=== PATIENT | female | born 2005 | race Caucasian/White ===

== ENCOUNTER 2024-05-29 12:53 | Emergency (ER) | payer BC, SELFPAY ==
[2024-05-29 12:55] VITALS: BP 140/85
--- NOTE | 2024-05-29 12:58 | ED.GENMED ---
ED Provider Triage
<Guilherme Liriano PA-C - Last Filed: 05/29/24 12:59>
-
Patient seen by provider in Triage?: Seen in Triage
19-year-old female presents with right sided facial and neck swelling worsening over the past week. She has been on amoxicillin over the past week. Was just at the dentist office today. She has had a tooth extraction and they gave her numbing
medicine. The pain is persistent despite the numbing medicine. She denies chest pain or shortness of breath. No measurable fever
Question possible dental abscess versus parotid gland infection concern for deep space infection given the neck discomfort
Labs ordered through triage as well as a CT of the neck with IV contrast
Patient received a medical screening assessment by healthcare provider in triage. She warrants further evaluation
History of Present Illness
<Guilherme Liriano PA-C - Last Filed: 05/29/24 12:59>
General
Chief Complaint: Jaw Pain
Time Seen by Provider: 05/29/24 13:37
<Starr Ellsworth PA-C - Last Filed: 05/29/24 21:40>
General
Source: patient
Exam Limitations: none
Nursing documentation reviewed up to this point in time: agreed with
History of Present Illness
History of Present Illness:
19-year-old female presents emergency department today with right lower jaw pain for the past month, acutely worsening the past 3 days. Patient reports that she has had problems with her teeth in general for a while now but reports that she started
having right lower dental pain. She went to go see her dentist and had to have a root canal performed. This was a few weeks ago. Patient was subsequently given amoxicillin but states that she did not finish the full course because she was
admitted to inpatient psychiatric treatment and they did not give her the rest of the antibiotic course there. Patient states that she then presented to the dentist again and states that they had to pull a tooth out. She had that tooth pulled this
morning.She saw Dr. Sotelo at [facility]. She was told that she needs to report to emergency department because her infection could be beyond the pulp space and could spread deeper into her jaw. Patient denies fevers or chills, nausea or vomiting,
trouble swallowing. Patient states that she has not been eating due to the severe pain and reports that she has been very depressed because of it
Review of Systems
<Starr Ellsworth PA-C - Last Filed: 05/29/24 21:40>
Review of Systems
All Other Systems: ROS reviewed and negative except as documented in HPI and ROS
Phy Exam
<Starr Ellsworth PA-C - Last Filed: 05/29/24 21:40>
Physical Exam
Physical Exam:
General: Patient is well appearing and in no acute distress; non-toxic
Skin: Warm and dry, no rashes or lesions
Head: Normocephalic, atraumatic, TMJ joints intact bilaterally
Neck: No cervical lymphadenopathy, no palpable crepitus
Eyes: Sclera non-icteric. EOMs intact.
Cardiac: Regular rate and rhythm, no murmurs
Mouth: Gingival inflammation noted, surgically absent tooth 31, no purulent drainage
Pulm: Normal respiratory effort, no wheezes, rales, or rhonchi
Neuro: CN II-XII intact, no focal neurologic deficits.
Psychiatric: Appropriate mood and affect.
Course
<Guilherme Liriano PA-C - Last Filed: 05/29/24 12:59>
Orders/Labs/Results
Orders:
Orders
05/29/24 12:56
CT Neck With Iv Contrast Urgent
Comment:
Reason For Exam: right facial/neck swelling
05/29/24 12:57
Test Result ONCE
05/29/24 13:09
Complete Blood Count/With Diff Urgent
Comprehensive Metabolic Panel Urgent
HCG, Serum Qualitative Screen Urgent
05/29/24 14:13
Ketorolac [Toradol] 30 mg IM NOW STA
05/29/24 14:24
Ketorolac [Toradol] 30 mg IV NOW STA
05/29/24 15:23
Case Management Consult ONCE
Case Management Consult: Discharge Planning
Comment: financial troubles, affording visit
Crisis Consult Urgent
Reason for Consult: depression
Comment: hopelessness, depression, wants inpatient treatment but cannot dental infec
Abnormal Lab Results
05/29/24
13:09
MCH 31.6 H pg
(27.0-31.0)
Abs Immat Gran (auto) 0.1 H 10^3/uL
(0-0.05)
Absolute Neuts (auto) 6.8 H 10^3/uL
(1.4-6.5)
Lymphocytes % 18.5 L %
(20.5-51.1)
BUN 18 H mg/dl
(7-17)
Glucose 101 H mg/dl
(70-99)
AST 52 H U/L
(14-36)
ALT 42 H U/L
(0-35)
05/29/24 13:09
05/29/24 13:09
Vital Signs
Initial and Last Documented VS:
Initial Vital Signs
Temp Pulse Resp BP Pulse Ox
98.1 F 80 16 140/85 100
05/29/24 12:55 05/29/24 12:55 05/29/24 12:55 05/29/24 12:55 05/29/24 12:55
Last Documented Vital Signs
Temp Pulse Resp BP Pulse Ox
98.1 F 82 16 112/79 97
05/29/24 12:55 05/29/24 16:49 05/29/24 16:49 05/29/24 16:49 05/29/24 16:49
<Starr Ellsworth PA-C - Last Filed: 05/29/24 21:40>
Orders/Labs/Results
Orders:
Orders
05/29/24 12:56
CT Neck With Iv Contrast Urgent
Comment:
Reason For Exam: right facial/neck swelling
05/29/24 12:57
Test Result ONCE
05/29/24 13:09
Complete Blood Count/With Diff Urgent
Comprehensive Metabolic Panel Urgent
HCG, Serum Qualitative Screen Urgent
05/29/24 14:13
Ketorolac [Toradol] 30 mg IM NOW STA
05/29/24 14:24
Ketorolac [Toradol] 30 mg IV NOW STA
05/29/24 15:23
Case Management Consult ONCE
Case Management Consult: Discharge Planning
Comment: financial troubles, affording visit
Crisis Consult Urgent
Reason for Consult: depression
Comment: hopelessness, depression, wants inpatient treatment but cannot dental infec
Abnormal Lab Results
05/29/24
13:09
MCH 31.6 H pg
(27.0-31.0)
Abs Immat Gran (auto) 0.1 H 10^3/uL
(0-0.05)
Absolute Neuts (auto) 6.8 H 10^3/uL
(1.4-6.5)
Lymphocytes % 18.5 L %
(20.5-51.1)
BUN 18 H mg/dl
(7-17)
Glucose 101 H mg/dl
(70-99)
AST 52 H U/L
(14-36)
ALT 42 H U/L
(0-35)
05/29/24 13:09
05/29/24 13:09
Vital Signs
Initial and Last Documented VS:
Initial Vital Signs
Temp Pulse Resp BP Pulse Ox
98.1 F 80 16 140/85 100
05/29/24 12:55 05/29/24 12:55 05/29/24 12:55 05/29/24 12:55 05/29/24 12:55
Last Documented Vital Signs
Temp Pulse Resp BP Pulse Ox
98.1 F 82 16 112/79 97
05/29/24 12:55 05/29/24 16:49 05/29/24 16:49 05/29/24 16:49 05/29/24 16:49
<Starr Ellsworth PA-C - Last Filed: 05/29/24 21:40>
MDM/Problems Addressed
Differential Diagnosis Includes:
See below
MDM/Problems Addressed:
NUMBER AND COMPLEXITY OF PROBLEMS ADDRESSED AT THE ENCOUNTER
� Chronic conditions affecting care: Recurrent dental infections
� Acute Exacerbation and/or Progression of Chronic Illness:
� Differential Diagnosis includes: Differentials include diffuse infection of the neck, dental abscess, submandibular infection, osteonecrosis of the jaw
AMOUNT AND/OR COMPLEXITY OF DATA TO BE REVIEWED AND ANALYZED
� I performed an independent evaluation of and my interpretation is:
CT: CT scan report reviewed, CT scan reveals minor inflammation of the right submandibular soft tissues with no evidence of submandibular gland involvement, no evidence of dental abscess
Laboratory Studies: CBC unremarkable
Other:
� Review of other/old records: No previous ER physician documentation to review, discharge summaries
RISK OF COMPLICATIONS AND/OR MORBIDITY OR MORTALITY OF PATIENT MANAGEMENT
� Social determinants of health affecting care: Mental health, lack of family support
� Discussion with other providers: Reviewed case with my ER attending Dr. Marx
� Escalation of care including admission/observation vs risk of discharge considered:
19-year-old female presents emergency department today with persistent right lower jaw pain for the past few weeks has gotten acutely worse the past few days. Patient has no associated fevers or chills. Of note, patient had root canal done of
tooth 31-week ago and did have extraction of this tooth this morning. She has an appointment with another dentist tomorrow morning. Her dentist was concerned about spread of the infection deeper into the jaw or into the neck. On exam, patient has
a surgically absent T3 1 but no purulent drainage, no other signs of infection with dentition, pain patient's CAT scan shows mild inflammation of the right mandibular tissues but no evidence of abscess. Patient had 2 doses of amoxicillin the past 2
days started by her dentist, advised patient to continue taking this medication to resolve any infection. Patient was in a lot of pain upon arrival to emergency department, her pain eventually resolved with Toradol, patient did express suicidal
ideations test here in the emergency department states that she is a support at home and feels that this pain has been unbearable. Crisis was consulted, patient did agree to partial program for treatment of her depression, patient is able to
contract for her safety at this time and feels that upon discharge, she will be able to keep herself safe. Patient states that she is can follow-up with her dentist tomorrow morning, patient stable for discharge. CAT scan report provided for
patient
<Starr Ellsworth PA-C - Last Filed: 05/29/24 21:40>
*Critical Care Note
Total Time (30-74mins, 75-104mins- exclusive of procedures): Not Applicable
ED Attending Note
<Guilherme Liriano PA-C - Last Filed: 05/29/24 12:59>
-
Portions of this chart may have been created with voice recognition software.� Occasional wrong word or��sound alike� substitutions may have occurred due to the inherent limitations of voice recognition software.
Discharge Plan
Departure
Patient Disposition: Home (Routine Discharge)
Date of Disposition: 05/29/24
Time of Disposition: 16:38
Patient with high blood pressure during this ER visit?: Yes
Condition: Good
Discharge Problem:
Dental infection
Instructions: Dental Pain ED, BLOOD PRESSURE
Referrals:
UNKNOWN - PT DOES,NOT KNOW [Family Provider] -
Activity Restrictions/Additional Instructions:
PLEASE CONTINUE YOUR ANTIBIOTIC AT HOME.
A copy of your CT scan report is included in this packet.
PLEASE FOLLOW UP WITH YOUR DENTIST TOMORROW MORNING SCHEDULED.
PLEASE RETURN TO THE EMERGENCY DEPARTMENT SHOULD YOU DEVELOP DIFFICULTY SWALLOWING, TROUBLE BREATHING, PERSISTENT BLEEDING, LIGHTHEADEDNESS, DIZZINESS, INTRACTABLE PAIN, FEVERS OR CHILLS, NAUSEA OR VOMITING, OR ANY OTHER SIGNS OR SYMPTOMS CONCERNING
TO YOU.
Interventions
Interventions:
*Risk Screen - Suicide Last Done: 05/29/24 12:55
*General Assessment Last Done: 05/29/24 12:55
*Neglect/Abuse Screening Last Done: 05/29/24 12:55
ED- Fall Risk Assessment Last Done: 05/29/24 16:49
*ED COVID-19 Vaccine History Last Done: 05/29/24 12:55
*Nursing Disposition Last Done: 05/29/24 16:49
ED-EENT Assessment Last Done: 05/29/24 14:09
ED- Cardiac Assessment Last Done: 05/29/24 14:23
Discharge Date and Time
Discharge Date/Time: 05/29/24 16:50
Print Language: TURKISH
[2024-05-29 13:19] LABS: % Basophils 0.4 % (0-2); % Eosinophils 1.9 % (0-6); % Immature Granulocytes 0.5 % (0-0.5); % Lymphocytes 18.5 % (20.5-51.1); % Monocytes 6.6 % (1.7-9.3); % Neutrophils 72.1 % (42.2-75.2); Absolute Eosinophils 0.2 10^3/uL (0-0.7); Absolute Immature Granulocytes 0.1 10^3/uL (0-0.05); Absolute Lymphocytes 1.8 10^3/uL (1.2-3.4); Absolute Monocytes 0.6 10^3/uL (0.1-0.6); Absolute Neutrophils 6.8 10^3/uL (1.4-6.5); Hematocrit 41.4 % (37.0-47.0); Mean Corp Hgb Conc. 33.8 g/dL (33.0-37.0); Mean Corpuscular Hgb 31.6 pg (27.0-31.0); Mean Corpuscular Volume 93.5 fL (81.0-99.0); Mean Platelet Volume 10.3 fL (7.4-10.4); Nucleated Red Blood Cells % 0 %; Platelet Count 237 10^3/uL (130-400); Red Blood Cell Count 4.43 10^6/uL (4.20-5.40); Red Cell Dist. Width 12.9 % (11.5-14.5); White Blood Cell Count 9.5 10^3/uL (4.8-10.8)
[2024-05-29 13:36] LABS: HCG, Serum Qualitative Screen Negative
[2024-05-29 13:37] LABS: ALT (SGPT) 42 U/L (0-35); AST (SGOT) 52 U/L (14-36); Albumin 4.6 g/dl (3.5-5.0); Alkaline Phosphatase 50 U/L (38-126); Blood Urea Nitrogen 18 mg/dl (7-17); Calcium 9.3 mg/dl (8.4-10.2); Carbon Dioxide 27 mmol/L (22-30); Chloride 104 mmol/L (98-107); Glucose 101 mg/dl (70-99); Potassium 3.9 mmol/L (3.5-5.1); Sodium 140 mmol/L (135-145); Total Bilirubin 0.6 mg/dl (0.2-1.3); eGFR > 60.00
[2024-05-29] MEDS: TORADOL 30 MG IV (14:25)
--- NOTE | 2024-05-29 15:51 | CM ---
CM met with patient in room. Patient stated that she feels increasing stressed due to financial concerns and lack of support from her family. Patient endorses that she has been to three different Inpatient Psychiatric units and was recently
discharged. CM provided patient with Patient Financial Services brochure. Patient was thankful for the assistance.
Patient will be seen by crisis to discuss outpatient psychiatric resources.
[2024-05-29 16:49] VITALS: BP 112/79
== END 2024-05-29 16:50 | disposition home or self-care (01) ==
LOC: EMR 12:53
PROVIDERS: Physician Assistant; EMERGENCY PHYSICIAN Student in an Organized Health Care Education/Training Program
DX: K04.7 Periapical abscess without sinus (principal); F32.A Depression, unspecified; Z98.818 Other dental procedure status
CPT/HCPCS: 96374; 99284; 70491; 80053; 84703; 85025; Q9967